=== PATIENT | female | born 1985 | race Caucasian/White ===

== ENCOUNTER 2023-01-23 12:42 | Emergency (ER) | payer MEDICAID ==
[2023-01-23] MEDS ORDERED: Sodium Chloride 0.9% 10 ML Syringe FLUSH PRN (15:35)
[2023-01-23] MEDS ORDERED: Sodium Chloride 0.9% 2.5 ML Syringe FLUSH PRN (15:35)
[2023-01-23] MEDS ORDERED: Sodium Chloride 0.9% 1,000 ML IV STA (15:36)
[2023-01-23 16:46] LABS: CARBON DIOXIDE,CO2 29.9 mmol/L (21.0-32.0)
== END 2023-01-23 20:15 | disposition home or self-care (01) ==
LOC: MW.ED 12:42
DX: R10.11 Right upper quadrant pain (principal); N93.9 Abnormal uterine and vaginal bleeding, unspecified; F15.10 Other stimulant abuse, uncomplicated; F12.90 Cannabis use, unspecified, uncomplicated
CPT/HCPCS: 36415; 76705; 76817; 80053; 80305; 80307; 81001; 83690; 84702; 85025; 86900; 86901; 87086; 96360; 99284; J3490; J7030; 99283